=== PATIENT | male | born 1970 | race Caucasian/White ===

== ENCOUNTER 2018-04-07 18:11 | Inpatient (IN) ==
--- NOTE | 2018-04-07 18:21 | Emergency Department Note ---
Disposition Clinical Impression: NSTEMI (non-ST elevated myocardial infarction) Disposition: Admitted As Inpatient Condition: Fair Referrals: Chilo Matson MD [Primary Care Provider] - Forms: ED Satisfaction Letter Time of Disposition: 19:07 Chest Pain HPI - General Chief Complaint: ED Chest Pain Stated Complaint: ed chest pain Time Seen by Provider: 04/07/18 18:16 Source: patient Mode of arrival: EMS Limitations: no limitations Vital Signs Reviewed: Yes Nursing Notes Reviewed: Yes - History of Present Illness HPI Narrative: Chest discomfort started after the patient was laying mulch. Patient improved after sublingual nitroglycerin. No history of coronary artery disease Pt complaint: chest pain Onset (ago): hour(s) Duration: constant Onset: during exertion Pain Location: substernal Severity: moderate Severity scale (1-10): 5 Pain Radiation: none Improves with: nitroglycerin Worsens with: nothing Treatments prior to arrival chest pain: aspirin, nitroglycerin, oxygen - Related Data Allergies Allergy/AdvReac Type Severity Reaction Status Date / Time No Known Allergies Allergy Verified 04/07/18 18:34 All systems ED: reviewed and negative except as stated. Constitutional: Reports: as per HPI Eyes: Reports: as per HPI ENT ED: Reports: as per HPI Cardiovascular: Reports: chest pain Respiratory: Reports: as per HPI Gastrointestinal: Reports: as per HPI Genitourinary: Reports: as per HPI Musculoskeletal: Reports: as per HPI Integumentary: Reports: as per HPI Neurological: Reports: as per HPI Psychiatric: Reports: as per HPI Endocrine: Reports: as per HPI Hematological/Lymphatic: Reports: as per HPI Allergic/Immunologic: Reports: as per HPI Chest Pain PMH - Social History Smoking Status: Never smoker Drug use: Reports: none Physical Exam - General Limitations: no limitations General appearance: alert - Head Head exam: atraumatic - Eye Eye exam: Present: normal appearance - ENT ENT exam: normal exam - Neck Neck exam: Present: normal inspection, full ROM - Chest Chest inspection: Present: normal inspection, symmetric chest wall rise - Respiratory Respiratory exam: Present: normal lung sounds bilaterally - Cardiovascular Cardiovascular exam: Present: regular rate, normal rhythm, normal heart sounds - Rectal Exam Rectal exam: Present: deferred - Extremities Exam Extremities exam: Present: normal inspection - Neurological Exam Neurological exam: Present: alert, oriented X3, CN II-XII intact - Psychiatric Psychiatric exam: Present: normal affect, normal mood - Skin Skin exam: Present: warm, dry, intact Course Course Narrative: Patient presents with chest discomfort. This occurred after he was laying mulch. He appears in no acute distress on exam. Cardiac workup initiated - Consultations Consultation #1: call placed to cardiology data visualization developer. EKG sent to Dr. Mccullough at 19:32 Vital Signs Temperature 98.3 F 04/07/18 18:13 Pulse Rate 94 04/07/18 18:13 Respiratory Rate 13 04/07/18 18:13 Blood Pressure 171/103 04/07/18 18:13 O2 Sat by Pulse Oximetry 95 04/07/18 18:13 Temperature 98.3 F 04/07/18 18:29 Pulse Rate 92 04/07/18 18:32 Respiratory Rate 12 04/07/18 18:32 Blood Pressure 170/107 04/07/18 18:32 O2 Sat by Pulse Oximetry 96 04/07/18 18:32 Oxygen Delivery Oxygen Delivery Room Air Chest Pain - Lab Data Lab results reviewed: Yes I reviewed the patient's lab results. Result diagrams: 04/07/18 18:24 04/07/18 18:24 Lab Results 04/07/18 04/07/18 04/07/18 Range/Units 18:24 18:24 18:24 WBC 14.1 H (4.3-11.1) K/mcL RBC 5.15 (4.19-5.50) M/mcL Hgb 15.7 (12.9-16.9) g/dL Hct 45.3 (37.5-50.1) % MCV 88.0 (83.0-100.0) fL MCH 30.5 (28.0-33.3) pg MCHC 34.7 (31.6-35.5) g/dL RDW 13.2 (11.5-14.5) % Plt Count 175 (140-400) K/mcL MPV 11.4 (9.4-12.4) fL Immature Gran % 0.6 (0-4) % Seg Neutrophils % 74.0 % Lymphocytes % 17.9 % Monocytes % 6.0 % Eosinophils % 1.2 % Basophils % 0.3 % Neutrophils # 10.4 H (1.6-8.9) K/mcL Lymphocytes # 2.5 (0.6-4.6) K/mcL Monocytes # 0.8 (0.0-1.3) K/mcL Eosinophils # 0.2 (0.0-0.6) K/mcL Basophils # 0.0 (0.0-0.2) K/mcL PT 13.5 H (9.4-12.1) Seconds INR 1.2 APTT 29.0 (26.0-36.0) Seconds Sodium 137 (136-145) mEq/L Potassium 3.5 (3.5-5.1) mEq/L Chloride 103 (98-107) mEq/L Carbon Dioxide 23 (23-29) mEq/L BUN 15 (6-20) mg/dL Creatinine 1.26 (0.70-1.30) mg/dL Est GFR ( Amer) > 60 (> 60) Est GFR (Non-Af Amer) > 60 (> 60) BUN/Creatinine Ratio 12 (6-26) Glucose 138 H (70-105) mg/dL Calculated Osmolality 287 (280-300) Calcium 9.7 (8.6-10.3) mg/dL Total Bilirubin 0.5 (0.3-1.0) mg/dL Direct Bilirubin 0.1 (0.0-0.2) mg/dL Indirect Bilirubin 0.4 (0.0-1.2) mg/dL AST 29 (13-39) Units/L ALT 36 (7-52) Units/L Alkaline Phosphatase 58 (34-104) Units/L Troponin I 0.14 H* (< 0.04) ng/mL Serum Total Protein 7.3 (6.4-8.9) g/dL Albumin 4.7 (3.5-5.7) g/dL Globulin 2.6 (2.4-3.5) g/dL Albumin/Globulin Ratio 1.8 (1.1-2.2) - Radiology Data Radiology results reviewed: Yes I reviewed the patient's radiology results. - EKG Data EKG attestation: Yes I reviewed and interpreted this EKG. EKG results narrative: Normal sinus rhythm with premature ventricular complexes rate 92 NH 176 QRS 101 QT/QTC 368/417. No acute ST segment elevation. Mild ST segment depression in leads 3 and aVF. No previous study available for comparison Heart Score - Score History: Moderately Suspicious EKG: Non Specific repolarisation Disturbance Age: 45-65 Risk Factors: 1-2 risk factors Troponin: Greater than 3x normal limit HEART Score Total: 6 Critical Care Time Critical Care Time: Yes Total Critical Care Time: 30 Attestation: The high probability of a clinically significant, sudden or life threatening deterioration of the [] system(s) required my full and direct attention, intervention and personal management. The aggregate critical care time was [] minutes. This time is in addition to time spent performing reported procedures but includes the following: [] Data Review and interpretation [] Patient assessment and monitoring of vital signs [] Documentation [] Medication orders and management
[2018-04-07 18:39] LABS: Basophils % 0.3 %; Eosinophils # 0.2 K/mcL (0.0-0.6); Eosinophils % 1.2 %; Hematocrit 45.3 % (37.5-50.1); Hemoglobin 15.7 g/dL (12.9-16.9); Immature Granulocytes % 0.6 % (0-4); Lymphocytes # 2.5 K/mcL (0.6-4.6); Lymphocytes % 17.9 %; Mean Corpuscular HGB Conc 34.7 g/dL (31.6-35.5); Mean Corpuscular Hemoglobin 30.5 pg (28.0-33.3); Mean Platelet Volume 11.4 fL (9.4-12.4); Monocytes # 0.8 K/mcL (0.0-1.3); Neutrophils # 10.4 K/mcL (1.6-8.9); Platelet Count 175 K/mcL (140-400); Red Blood Count 5.15 M/mcL (4.19-5.50); Red Cell Distribution Width 13.2 % (11.5-14.5)
[2018-04-07 18:46] LABS: INR 1.2; Prothrombin Time 13.5 Seconds (9.4-12.1)
[2018-04-07 19:02] LABS: Alanine Aminotransferase 36 Units/L (7-52); Albumin 4.7 g/dL (3.5-5.7); Albumin/Globulin Ratio 1.8 (1.1-2.2); Alkaline Phosphatase 58 Units/L (34-104); Aspartate Amino Transferase 29 Units/L (13-39); BUN/Creatinine Ratio 12 (6-26); Bilirubin,Direct 0.1 mg/dL (0.0-0.2); Bilirubin,Indirect 0.4 mg/dL (0.0-1.2); Bilirubin,Total 0.5 mg/dL (0.3-1.0); Blood Urea Nitrogen 15 mg/dL (6-20); Calcium 9.7 mg/dL (8.6-10.3); Carbon Dioxide 23 mEq/L (23-29); Chloride 103 mEq/L (98-107); Globulin 2.6 g/dL (2.4-3.5); Glucose 138 mg/dL (70-105); Osmolality,Calculated 287 (280-300); Potassium 3.5 mEq/L (3.5-5.1); Sodium 137 mEq/L (136-145); Total Protein 7.3 g/dL (6.4-8.9); eGFR For African Americans > 60 (> 60); eGFR For Non-African Americans > 60 (> 60)
[2018-04-07 19:04] LABS: Troponin I 0.14 ng/mL (< 0.04)
[2018-04-07] MEDS ORDERED: *HR* Heparin 5,000 UNIT/ML VIAL IVP PRN ×2 (19:04)
[2018-04-07] MEDS ORDERED: *HR* Heparin 5,000 UNIT/ML VIAL IVP ONE (19:04)
[2018-04-07] MEDS ORDERED: GI Cocktail 40 ML EACH PO ONE (19:04)
[2018-04-07] MEDS ORDERED: Heparin 25,000 UNIT/500 ML D5W 25,000 UNIT/500 ML BAG IVC SCH (19:15)
[2018-04-07] MEDS ORDERED: Nitroglycerin 25 MG/250 ML INFUS..BTL IVC SCH (19:15)
--- NOTE | 2018-04-07 20:26 | Internal Med History&Physical ---
Date of Encounter: 04/08/18 Time of Encounter: 20:24 Internal Medicine - H&P: HPI Chief complaint: Chest pain Admitted From: Emergency Dept Plans for Post Hospital Care: Home History of present illness: Mr. Stephen is a 47 year old male with history of hypertension, hyperlipidemia, gout, depression who experienced chest pain around 4:30 PM while carrying 50 pounds mulch and was put it in the down. Chest pain was substernal and was 6 out of 10 in intensity with no radiation. He felt clammy and diaphoretic at the time. Chest pain continued so he came and got evaluated in the ED where an EKG was done showed no acute ST or T-wave changes but showed PVCs. His laboratory workup showed troponins of 0.14. Laboratory workup was also significant for WBC count of 14.1. Patient is afebrile and denies any fevers or chills. Chest x-ray was with no acute abnormalities. The patient denies any fever, chills, nausea, vomiting, headache, blurry vision, abdominal pain, diarrhea, urinary symptoms, or neurological symptoms. The patient received 4 baby aspirins and Route. His blood pressure initially was 171/103 and the patient was started on a heparin drip and a nitro drip due to his continuous chest pain and elevated blood pressure. Before that he received 3 sublingual nitros. Cardiology were consulted from the ED and recommended admission. Past Med Surg Social Fam HX - Past Medical History Medical history: hypertension Psychiatric history: other - Social History Smoking Status: Never smoker Alcohol use: occasionally Drug use: none Internal Medicine - H&P: Meds Allopurinol [Zyloprim 300 MG] 300 mg PO DAILY 04/07/18 [History] Escitalopram [Lexapro] 20 mg PO DAILY 04/07/18 [History] Pravastatin Sodium 10 mg PO HS 04/07/18 [History] Sildenafil Citrate 100 mg PO DAILY 04/07/18 [History] Valsartan [Valsartan] 160 mg PO DAILY 04/07/18 [History] 3 Allergy/AdvReac Type Severity Reaction Status Date / Time No Known Allergies Allergy Verified 04/07/18 19:43 All Systems PM: A 10-system review of systems was performed and is negative for pertinent findings except as documented above in the HPI. Review of systems: All systems reviewed are negative except was mentioned above - Constitutional Vitals: Temp Pulse Resp BP Pulse Ox 98.3 F 92 12 170/107 96 04/07/18 18:29 04/07/18 18:32 04/07/18 18:32 04/07/18 18:32 04/07/18 18:32 Exam: GEN: NAD HEENT: AT, NC, No cyanosis, oral mucosa is moist, No JVD Lymphatics: No lymphadenoapthy Eyes: Extrocular muscles intact, anicteric CVS:RRR. S1, S2, No m/r/g RESP: CTAB ABD: Soft, NT, ND, +BS EXT: No edema, No rashes, 2+ DP NEURO: Nonfocal, CN II-XII intact, No focal motor or sensory deficits Psych: Cooperative, Not anxious or depressed Internal Med - H&P Results - Labs CBC & Chem 7: 04/08/18 01:33 04/08/18 01:33 Labs: Short CBC 04/07/18 Range/Units 18:24 WBC 14.1 H (4.3-11.1) K/mcL Hgb 15.7 (12.9-16.9) g/dL Hct 45.3 (37.5-50.1) % Plt Count 175 (140-400) K/mcL Neutrophils # 10.4 H (1.6-8.9) K/mcL BMP 04/07/18 18:24 Sodium 137 Potassium 3.5 Chloride 103 Carbon Dioxide 23 BUN 15 Creatinine 1.26 Glucose 138 H Calcium 9.7 Cardiac Enzymes 04/07/18 Range/Units 18:24 Troponin I 0.14 H* (< 0.04) ng/mL Liver Function 04/07/18 Range/Units 18:24 Total Bilirubin 0.5 (0.3-1.0) mg/dL Direct Bilirubin 0.1 (0.0-0.2) mg/dL AST 29 (13-39) Units/L ALT 36 (7-52) Units/L Alkaline Phosphatase 58 (34-104) Units/L Albumin 4.7 (3.5-5.7) g/dL - Impressions ITS Impressions Chest X-Ray 04/07/18 18:16 IMPRESSION: Normal appearing chest. No significant acute abnormality appreciated. Slight pulmonary vascular congestion may be present. D/ / Navjot Holland MD / Navjot Holland MD Interpreting Provider: Navjot Holland MD - Assessment and plan (1) NSTEMI (non-ST elevated myocardial infarction) Current Visit: Yes Status: Acute Assessment and plan: Admit to hospitalist. We will keep the patient on a heparin drip. Trend cardiac enzymes. Check echocardiogram. Check lipid panel, hemoglobin A1c. Consult cardiology. Keep on nitro drip. Elevated cups could be secondary to a true cardiac event versus uncontrolled hypertension. Patient received already 4 low-dose aspirin. We will add a beta poli. start daily baby ASA. Increase simvastatin to 20 mg from 5 mg. Nothing by mouth after midnight (2) Hypertensive emergency Current Visit: Yes Status: Acute Assessment and plan: Continue causes chest pain and elevated troponins. Will keep on a heparin drip. Resume home anti-hypertensives (3) PVC (premature ventricular contraction) Current Visit: Yes Status: Acute Assessment and plan: Patient has PVCs. Potassium is 3.5 and I have ordered him 40 mEq of potassium. Check magnesium. (4) Depression Current Visit: Yes Status: Acute Assessment and plan: Resume home antidepressants Qualifiers: Depression Type: major depressive disorder Major depression recurrence: unspecified whether recurrent Active/Remission status: currently active Major depression episode severity: unspecified Qualified Code(s): F32.9 - Major depressive disorder, single episode, unspecified (5) Gout Current Visit: Yes Status: Acute Assessment and plan: Resume home Medications. 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 Qualifiers: Hyperlipidemia type: unspecified Qualified Code(s): E78.5 - Hyperlipidemia , unspecified (7) DVT prophylaxis Current Visit: Yes Status: Acute Assessment and plan: On a heparin drip. - Time Spent With Patient Total time spent is greater than 50% in coordination of care (as documented) at patient's floor/unit and/or counseling patient:
[2018-04-07 20:43] LABS: Magnesium 1.6 mg/dL (1.6-2.6)
[2018-04-07] MEDS ORDERED: Magnesium Oxide 400 MG TABLET PO ONE (21:10)
[2018-04-07] MEDS ORDERED: Naloxone 0.4 MG/ML INJ IVP PRN (21:18)
[2018-04-07] MEDS ORDERED: Acetaminophen 325 MG TABLET PO PRN (21:18)
[2018-04-07] MEDS ORDERED: *HR* Morphine 2 MG/ML SYRINGE IVP ONE (21:54)
[2018-04-07] MEDS ORDERED: *HR* Morphine 2 MG/ML SYRINGE ONE (21:58)
[2018-04-07] MEDS: Metoprolol XL (24 HR) Succ 25 MG TAB.ER.24H PO SCH (23:29)
[2018-04-07] MEDS ORDERED: *HR* FentaNYL (PF) 100 MCG/2 ML VIAL IVP ONE (23:36)
[2018-04-08 01:47] LABS: Basophils % 0.2 %; Eosinophils # 0.1 K/mcL (0.0-0.6); Eosinophils % 0.4 %; Hematocrit 46.6 % (37.5-50.1); Immature Granulocytes % 0.4 % (0-4); Lymphocytes # 2.8 K/mcL (0.6-4.6); Lymphocytes % 19.6 %; Mean Corpuscular HGB Conc 34.3 g/dL (31.6-35.5); Mean Corpuscular Hemoglobin 30.1 pg (28.0-33.3); Mean Corpuscular Volume 87.8 fL (83.0-100.0); Mean Platelet Volume 11.4 fL (9.4-12.4); Monocytes # 0.8 K/mcL (0.0-1.3); Monocytes % 5.8 %; Neutrophils # 10.3 K/mcL (1.6-8.9); Platelet Count 190 K/mcL (140-400); Red Blood Count 5.31 M/mcL (4.19-5.50); Red Cell Distribution Width 13.2 % (11.5-14.5); Segmented Neutrophils % 73.6 %
[2018-04-08 02:08] LABS: BUN/Creatinine Ratio 14 (6-26); Blood Urea Nitrogen 14 mg/dL (6-20); Calcium 9.7 mg/dL (8.6-10.3); Carbon Dioxide 23 mEq/L (23-29); Chloride 103 mEq/L (98-107); Chol/HDL Ratio 5.5 (0-4.9); Cholesterol 208 mg/dL (< 200); Glucose 146 mg/dL (70-105); HDL Cholesterol 38 mg/dL (40-59); LDL Cholesterol,Calculated 120 mg/dL (0-99); Magnesium 1.8 mg/dL (1.6-2.6); Osmolality,Calculated 283 (280-300); Potassium 4.1 mEq/L (3.5-5.1); Sodium 135 mEq/L (136-145); Triglycerides 250 mg/dL (< 150); eGFR For African Americans > 60 (> 60); eGFR For Non-African Americans > 60 (> 60)
[2018-04-08 02:21] LABS: Thyroid Stimulating Hormone 2.982 mcIU/mL (0.340-5.600)
--- NOTE | 2018-04-08 08:03 | Pre-Sedation Evaluation ---
Pre-sedation evaluation - Pre-sedation checklist Date of procedure: 04/08/18 Procedure: [facility] Recent Vitals: Last Vital Signs Temp 97.7 F 04/08/18 06:26 Pulse 71 04/08/18 06:26 Resp 15 04/08/18 06:26 BP 131/79 04/08/18 06:26 Pulse Ox 96 04/08/18 06:26 H&P (including ROS) documented in medical record: Yes Previous reaction to sedatives/anesthetics: No Dietary Status: NPO after Midnight Airway Assessment: Patient can open mouth completely, TMJ function normal ASA Classification *see protocol: CLASS II-Mild systemic disease Plan of Care: Pt appropriate candidate for procedure/moderate/conscious sedation , Risks/benefits of procedure/sedation discussed w/ patient/family
[2018-04-08 08:10] LABS: Estimated Average Glucose 120 mg/dl; Hemoglobin A1C 5.8 %
--- NOTE | 2018-04-08 08:30 | Cardiology Consult Note ---
<Martir Suarez - Last Filed: 04/08/18 08:25> Date of Encounter: 04/08/18 Time of Encounter: 08:15 Assessment and Plan (1) NSTEMI (non-ST elevated myocardial infarction) Current Visit: Yes Status: Acute Troponin elevation up to 34.4. EKG shows SR with bigeminal PVC, possible old septal TX. He continues to have chest pain despite antianginals and morphine. Recommend LHC. R/B/A of LHC discussed with patient and and he agrees. Continue heparin gtt, and IV NTG gtt. Asa, statin, and bb. (2) HTN (hypertension) Current Visit: Yes Status: Acute Uncontrolled HTN. Metoprolol started. Continue diovan. Low sodium diet. Qualifiers: Hypertension type: essential hypertension Qualified Code(s): I10 - Essential (primary) hypertension (3) PVC (premature ventricular contraction) Current Visit: Yes Status: Acute Seen to have frequent PVC. May be due to ischemia. LHC pending. BB started. Discussion w patient/family: The assessment and plan as outlined above was discussed with the patient and/or family members who expressed understanding and agreement. All questions were answered. Thank you for involving us in the care of your patient. Please call with any questions. History of Present Illness Consult date: 04/08/18 Requesting physician: Jesus Valenzuela Consult reason: NSTEMI Chief complaint: Chest pain History of present illness: Mr. Stephen is a 47 year old male with past medical history of HTN and HLD who presented with the c/o chest pain starting after doing yard work. C/o mid- sternal non-radiating pain in the center of his chest and overall feeling of not feeling well. Denies SOB or palpitations. His symptoms improved with morphine but states his pain returned and is currently 8/10. He is currently on NTG gtt and IV heparin. He denies prior history of CAD or cardiac work-up. Past Med Surg Social Fam HX - Past Medical History Medical history: hyperlipidemia, hypertension Additional medical history: gout Psychiatric history: other - Social History Smoking Status: Never smoker Alcohol use: occasionally Drug use: none Medications and Allergies Allopurinol [Zyloprim 300 MG] 300 mg PO DAILY 04/07/18 [History] Escitalopram [Lexapro] 20 mg PO DAILY 04/07/18 [History] Pravastatin Sodium 10 mg PO HS 04/07/18 [History] Sildenafil Citrate 100 mg PO DAILY 04/07/18 [History] Valsartan [Valsartan] 160 mg PO DAILY 04/07/18 [History] Atorvastatin [Lipitor] 80 mg PO HS #30 tablet 04/08/18 [Rx] Metoprolol XL (24 HR) Succ [Toprol XL] 12.5 mg PO DAILY #15 tab.er.24h 04/08/18 [Rx] Nitroglycerin [Nitrostat] 0.4 mg SL AD PRN #25 tab.subl 04/08/18 [Rx] Ticagrelor [Brilinta] 90 mg PO BID #60 tablet 04/08/18 [Rx] 3 Allergy/AdvReac Type Severity Reaction Status Date / Time No Known Allergies Allergy Verified 04/07/18 19:43 All Systems Review: The remainder of the systems were reviewed and are negative Physical Examination Vital Signs, Last 4 Hours Temp Pulse Resp BP Pulse Ox 04/08/18 06:26 97.7 F 71 15 131/79 96 04/08/18 06:13 131/79 04/08/18 05:07 97.8 F 61 18 96 04/08/18 04:54 70 127/87 General: Conversant, No Apparent Distress HEENT: Atraumatic, Normocephaly, Mucus Membranes Moist Neck: No JVD, Normal carotid pulses Cardiac: Reg Rate and Rhythm, Normal S1 and S2, No Murmur, Other (SR with PVC) Lungs: Normal Breath Sounds, No Wheeze, Rales, Rhonchi Neuro: Alert and responsive, No focal deficits noted Abdomen: Soft, Non-Tender Skin: No rashes noted on visualized skin Musculoskeletal: No Chest Wall Tenderness Extremities: No Clubbing, No Cyanosis, No Edema, Normal Pulses Results 04/08/18 01:33 04/08/18 01:33 Lab Results 04/08/18 04/08/18 04/08/18 01:33 01:33 01:33 WBC 14.1 H Hgb 16.0 Hct 46.6 Plt Count 190 APTT Sodium 135 L Potassium 4.1 Chloride 103 Carbon Dioxide 23 BUN 14 Creatinine 1.01 Glucose 146 H Calcium 9.7 Magnesium 1.8 Troponin I 8.31 H* TSH 2.982 04/08/18 04/08/18 01:33 07:42 WBC Hgb Hct Plt Count APTT 43.4 H Sodium Potassium Chloride Carbon Dioxide BUN Creatinine Glucose Calcium Magnesium Troponin I 34.49 H* TSH - EKG Interpretation EKG results cardiology: personally reviewed Consult Discharge Plan - Plan Referrals: Chilo Matson MD [Primary Care Provider] - Prescriptions: Atorvastatin [Lipitor] 80 mg PO HS #30 tablet Metoprolol XL (24 HR) Succ [Toprol XL] 12.5 mg PO DAILY #15 tab.er.24h Nitroglycerin [Nitrostat] 0.4 mg SL AD PRN #25 tab.subl PRN Reason: Chest Pain Ticagrelor [Brilinta] 90 mg PO BID #60 tablet <Yosi Smith - Last Filed: 04/08/18 17:09> Date of Encounter: 04/08/18 - Attending Attestation I have personally performed a face to face evaluation on this patient. I have reviewed and agree with the care plan. History and Exam by me shows: CC: Chest pain Pt complains of mid sternal chest pain, 10/10, at most severe, started during yard work, non radiating, associated with mild shortness of breath, lasted approx thirty minutes, resolved, but continued to feel tired. He reports chest pain resolved, but has reoccurred. He currently has 8/10 chest pain on nitroglycerin and heparin. ROS: reviewed PMH: reviewed PE: pt seen and examined, agree with findings as documented. IMP: 1. NSTEMI, on going chest pain, recommend emergent left heart cath/possible PCI , risks and benefits discussed, agrees to proceed. Assessment and Plan Discussion w patient/family: The assessment and plan as outlined above was discussed with the patient and/or family members who expressed understanding and agreement. All questions were answered. Thank you for involving us in the care of your patient. Please call with any questions. History of Present Illness History of present illness: Mr. Stephen is a 47 year old male All Systems Review: The remainder of the systems were reviewed and are negative Physical Examination Vital Signs, Last 4 Hours Temp Pulse Resp BP Pulse Ox 04/08/18 15:57 97.8 F 78 15 111/84 97 04/08/18 15:54 78 20 127/109 94 04/08/18 14:29 67 20 142/95 96 04/08/18 14:19 73 20 157/109 96 04/08/18 14:15 69 20 157/109 95 04/08/18 13:50 76 20 159/118 99 04/08/18 13:48 68 20 159/118 96 Results 04/08/18 01:33 04/08/18 01:33 Lab Results 04/08/18 04/08/18 04/08/18 01:33 01:33 01:33 WBC 14.1 H Hgb 16.0 Hct 46.6 Plt Count 190 APTT Sodium 135 L Potassium 4.1 Chloride 103 Carbon Dioxide 23 BUN 14 Creatinine 1.01 Glucose 146 H Calcium 9.7 Magnesium 1.8 Troponin I 8.31 H* TSH 2.982 04/08/18 04/08/18 04/08/18 01:33 07:42 12:13 WBC Hgb Hct Plt Count APTT 43.4 H 30.8 Sodium Potassium Chloride Carbon Dioxide BUN Creatinine Glucose Calcium Magnesium Troponin I 34.49 H* TSH
[2018-04-08] MEDS: Valsartan 160 MG TABLET PO SCH (08:44)
[2018-04-08] MEDS: Aspirin Enteric Coated 81 MG Tablet PO SCH (08:44)
--- NOTE | 2018-04-08 08:51 | Internal Med Progress Note ---
<Abimael Del Toro - Last Filed: 04/08/18 08:48> Date of Encounter: 04/08/18 Time of Encounter: 08:48 - Assessment and plan (1) NSTEMI (non-ST elevated myocardial infarction) Current Visit: Yes Status: Acute Assessment and plan: Patient continues to have active chest pain. Troponin has continued to rise and is 38 this morning. Currently on heparin drip, nitro drip, aspirin, statin, beta poli, ARB. Cardiology is been consulted and patient will undergo left heart catheterization this morning. (2) PVC (premature ventricular contraction) Current Visit: Yes Status: Acute Assessment and plan: Patient has PVCs, likely secondary to ischemia. Potassium 4.1 this morning, and mag is 1.8. Continue telemetry and continue to monitor post left heart catheterization. (3) Hypertensive emergency Current Visit: Yes Status: Acute Assessment and plan: Blood pressure control at this time the patient continues to have chest pain. Currently on nitro drip. Continue nitro drip for now will likely discontinue after left heart catheterization. Restart home antihypertensives. (4) HLD (hyperlipidemia) Current Visit: Yes Status: Acute Assessment and plan: Switched to atorvastatin 80 mg Qualifiers: Hyperlipidemia type: unspecified Qualified Code(s): E78.5 - Hyperlipidemia , unspecified (5) Gout Current Visit: Yes Status: Acute Assessment and plan: No evidence acute attack. 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 - Time Spent With Patient Total time spent is greater than 50% in coordination of care (as documented) at patient's floor/unit and/or counseling patient: - Subjective Interval history: Patient seen and examined at bedside. Patient states that he still has chest pain this morning. He describes it as a feeling of somebody sitting on his chest. He denies radiation, shortness of breath, diaphoresis. He does feel the pain is slightly improved from admission. - Constitutional Vitals: Temp Pulse Resp BP Pulse Ox 97.7 F 71 15 131/79 96 04/08/18 06:26 04/08/18 06:26 04/08/18 06:26 04/08/18 06:26 04/08/18 06:26 General appearance: Present: A&O X 3, no acute distress - Respiratory Respiratory exam: Present: CTAB. Absent: rales, rhonchi, wheezes - Cardiovascular Cardiovascular exam: Present: irregular rhythm. Absent: gallop, rubs, systolic murmur, tachycardia - Extremities Exam Extremities exam: Present: warm. Absent: pedal edema, tenderness - Neurological Exam Neurological exam: Present: alert, oriented X3, no focal deficits Internal Medicine: Result - Labs CBC & Chem 7: 04/08/18 01:33 04/08/18 01:33 Labs: Short CBC 04/08/18 Range/Units 01:33 WBC 14.1 H (4.3-11.1) K/mcL Hgb 16.0 (12.9-16.9) g/dL Hct 46.6 (37.5-50.1) % Plt Count 190 (140-400) K/mcL Neutrophils # 10.3 H (1.6-8.9) K/mcL BMP 04/08/18 01:33 Sodium 135 L Potassium 4.1 Chloride 103 Carbon Dioxide 23 BUN 14 Creatinine 1.01 Glucose 146 H Calcium 9.7 Cardiac Enzymes 04/08/18 04/08/18 Range/Units 01:33 07:42 Troponin I 8.31 H* 34.49 H* (< 0.04) ng/mL - ABG Interpretation ABG results: PT/INR, D-dimer PT 13.5 Seconds (9.4-12.1) H 04/07/18 18:24 Consult Discharge Plan - Plan Referrals: Chilo Matson MD [Primary Care Provider] - Prescriptions: Atorvastatin [Lipitor] 80 mg PO HS #30 tablet Metoprolol XL (24 HR) Succ [Toprol XL] 12.5 mg PO DAILY #15 tab.er.24h Nitroglycerin [Nitrostat] 0.4 mg SL AD PRN #25 tab.subl PRN Reason: Chest Pain Ticagrelor [Brilinta] 90 mg PO BID #60 tablet <Brandyn Huff - Last Filed: 04/08/18 15:58> Date of Encounter: 04/08/18 - Time Spent With Patient Total time spent is greater than 50% in coordination of care (as documented) at patient's floor/unit and/or counseling patient: - Constitutional Vitals: Temp Pulse Resp BP Pulse Ox 97.8 F 67 20 142/95 96 04/08/18 11:46 04/08/18 14:29 04/08/18 14:29 04/08/18 14:29 04/08/18 14:29 Internal Medicine: Result - Labs CBC & Chem 7: 04/08/18 01:33 04/08/18 01:33 Labs: Short CBC 04/08/18 Range/Units 01:33 WBC 14.1 H (4.3-11.1) K/mcL Hgb 16.0 (12.9-16.9) g/dL Hct 46.6 (37.5-50.1) % Plt Count 190 (140-400) K/mcL Neutrophils # 10.3 H (1.6-8.9) K/mcL BMP 04/08/18 01:33 Sodium 135 L Potassium 4.1 Chloride 103 Carbon Dioxide 23 BUN 14 Creatinine 1.01 Glucose 146 H Calcium 9.7 Cardiac Enzymes 04/08/18 04/08/18 Range/Units 01:33 07:42 Troponin I 8.31 H* 34.49 H* (< 0.04) ng/mL - ABG Interpretation ABG results: PT/INR, D-dimer PT 13.5 Seconds (9.4-12.1) H 04/07/18 18:24 - Attending Attestation I saw and examined this patient independently, and my medical decision making was reviewed with the Resident on 2017. I agree with the documented findings, assessment and treatment plan as described in the progress note.
[2018-04-08] MEDS ORDERED: Verapamil 5 MG/2 ML VIAL ONE (09:03)
[2018-04-08] MEDS ORDERED: 0.9 % Sodium Chloride 1,000 ML ONE ×2 (09:03→09:35)
[2018-04-08] MEDS ORDERED: Heparin 1,000 UNITS/500 mL 500 ML ONE (09:04)
[2018-04-08] MEDS ORDERED: *HR* Heparin 10,000 UNIT/10 ML VIAL ONE (09:04)
[2018-04-08] MEDS ORDERED: Nitroglycerin 1,000 MCG/10 ML VIAL IV ONE (09:04)
[2018-04-08] MEDS ORDERED: ISOVUE-370 200 ML INFUS..BTL IV ONE (09:04)
[2018-04-08] MEDS ORDERED: *HR* FentaNYL (PF) 100 MCG/2 ML VIAL ONE (09:32)
[2018-04-08] MEDS ORDERED: *HR* Midazolam HCl 5 MG/5 ML VIAL IVP ONE (09:32)
[2018-04-08] MEDS ORDERED: Tirofiban 12.5 MG/250ML 12.5 MG/250 ML BAG ONE (10:06)
[2018-04-08] MEDS ORDERED: *HR* Ticagrelor 90 MG TABLET ONE (10:21)
--- NOTE | 2018-04-08 10:44 | Invasive Diagnostic Lab Proc ---
Name: Dano Stephen Date of Study: 04/08/2018 Date: 1970 Ht: 70.0in Medical Record#: [id number] Age: 47 Wt: 253.53lb Gender: Male BSA: 2.31 Order #: [id number] BMI: 36.38 Physicians Procedure Physician: Ross Huntley MD, [facility] Referring MD: Referring MD: Staff Name Position Time In Nghia Wood RT (R) Scrub 09:28 AM Piero Pastrana RN Loan Interviewer Mortgage 09:29 AM Danielle Salmon RT Scrub 09:30 AM Nghia Wood RT (R) Monitor 09:30 AM Indications Indication Non-Stemi Procedures Performed Procedure L HRT ARTERY/VENTRICLE ANGIO PRQ CARD REVASC IA 1 VSL Pre-Procedure Checklist Informed consent is complete signed and on chart. H&P is on chart. ID band is on and ID verified with patient. Patient NPO for procedure The procedure was described for the patient and questions were answered. Blood Pressure: 154/97 ECG is on chart. Rhythm: NSR w PVC's Plan of Care Patient will tolerate the procedure without complications. Adequate level of comfort will be maintained. Hemodynamics will remain stable Patient will recover from procedure without complications. Respiratory function will be maintained. Cardiac rhythm will remain stable. Patient temperature will be maintained. Patient and/or family have verbalized understanding of the procedure. Patient Education Chief Complaint/Reason for Test: Cardiac Cath Developmental Category: Adult (18-64 years) Developmentally Appropriate for Age: Yes Learning Barriers: None Education Needs: Procedure Education Method: Verbal Information Taught: Cardiac Cath Educational Evaluation: Able to repeat information Intravenous Access Time IV Size Location DC'd Fluid/Drip Rate Units RN 09:28 AM 18g 1 1/4" Patent On Arrival Lt Antecubital 0.9NaCl 25 ml/hr Piero Pastrana RN Allergies No Known Allergies Vital Signs Time BP (mmHg) HR (bpm) O2 Sat. RR (bpm) LOC 09:30 AM 154 / 97 78 98 % 16 5 = Fully awake and oriented or at pre-proc level 09:30 AM / % 4 = Oriented but drowsy 09:45 AM / % 4 = Oriented but drowsy 10:00 AM / % 4 = Oriented but drowsy 09:39 AM 154 / 97 72 98 % 09:44 AM 153 / 102 80 96 % 09:49 AM 141 / 86 87 90 % 09:54 AM 145 / 93 73 97 % 09:59 AM 131 / 77 72 96 % 10:04 AM 113 / 75 65 96 % 10:09 AM 129 / 89 73 95 % 10:14 AM 136 / 92 73 96 % 10:19 AM 130 / 78 87 99 % 10:15 AM / % 5 = Fully awake and oriented or at pre-proc level Procedural Medications Time Medication Dose Units Method Given By 09:28 AM Nitroglycerin 10 mcg/hr Intravenous 09:38 AM Versed 2 mg Intravenous JermainthornPiero enrique RN 09:38 AM Fentanyl 50 mcg Intravenous AishaornPiero enrique RN 09:38 AM Oxygen 2 L/min nasal cannula Piero Pastrana RN 09:42 AM Lidocaine 2% 0.5 ml Subcutaneous Ross Huntley MD, [facility] 09:42 AM Versed 1 mg Intravenous Piero Pastrana RN 09:42 AM Fentanyl 25 mcg Intravenous Piero Pastrana RN 09:44 AM Heparin 2000 units Nitroglycerin 200 mcg Verapamil 2.5 mg Intraarterial Ross Huntley MD, [facility] 09:47 AM Heparin 1000 units Intravenous Piero Pastrana RN 10:05 AM Nitroglycerin 200 mcg Intracoronary Ross Huntley MD 10:09 AM Aggrastat Bolus: 58 ml Intravenous Piero Pastrana RN 10:09 AM Aggrastat 12.5mg/250ml 21 ml/hr Intravenous Piero Pastrana RN 10:16 AM Nitroglycerin 200 mcg Intracoronary Ross Huntley MD 10:21 AM Brilinta 180 mg Orally Piero Pastrana RN ASA Classification: CLASS II- Mild systemic disease (i.e. well-controlled diabetes, hypertension, asthma, cigarette smoking) Shant Score Preprocedure Postprocedure Activity 2- Moves 4 extremities sustained head lift Activity 2- Moves 4 extremities sustained head lift Circulation 2- SBP +/= 20 points of pre-anesthetic level Circulation 2- SBP +/= 20 points of pre-anesthetic level Consciousness 2- Awake and alert oriented x 3 Consciousness 2- Awake and alert oriented x 3 O2 Saturation 2- Able to maintain O2 satruation of 92% on room air O2 Saturation 2- Able to maintain O2 satruation of 92% on room air Respiratory 2- Able to deep breathe and cough well Respiratory 2- Able to deep breathe and cough well Total Score 10 Total Score 10 Contrast Agent: Isovue Diagnostic Contrast: 190 ml Total Contrast: 190 ml Fluoro Dose: 1476 mGy Activated Clotting Time Time Seconds to Clot 09:47 AM 149 Procedure Log Time Note Enter By 09:24 AM CathStat 09:28 AM Pt arrived to quality lab technician 2 at 09:28 kkner 09:28 AM Patient arrived at 09:28 with Nitroglycerin Intravenous drip @ 10 mcg/hr kkner 09:28 AM Patient charges- Angio tray pack, Navilyst 3mm J, Pulse Oximetry and ACIST tubing and transducer kkner 09:28 AM IV Supplies used: J loop Angio Cath. kk 09:28 AM Case Delayed No :28 AM Hair removed from procedure site in holding area using clippers. Bilateral groin prepped with Chloraprep by , then patient was draped. Skin intact. kk 09:29 AM Physician arrived :29 kk 09:29 AM Hans and cynthia completed :29 AM Sign in performed according to hospital policy. 09:29 AM Procedure start : 09:30 AM Piero Pastrana RN Position: Loan Interviewer Mortgage Time in: :29 09:30 AM Danielle Salmon RT Position: Scrub Time in: :30 09:30 AM Nghia Wood RT (R) Position: Monitor Time in: :30 09:30 AM Time: 09:30 Patient comfortable and pain free: Yes :30 AM Time: 09:30LOC: 5 = Fully awake and oriented or at pre-proc level 09:30 AM ASA Class CLASS II- Mild systemic disease (i.e. well-controlled diabetes, hypertension, asthma, cigarette smoking) 09:38 AM Time: :38 Versed 2 mg Intravenous Given by Piero Pastrana RN :38 AM Time: 09:38 Fentanyl 50 mcg Intravenous Given by Piero Pastrana RN moises :38 AM Time: 09:38 Oxygen on at 2 L/min per nasal cannula by Piero Pastrana RN moises :38 AM Clinical Presentation: Non-STEMI :38 AM Vitals capture started with the following parameters, Patient=Adult, Interval=5 min, Initial Pgiwheir=775 mmHg, Deflation Rate=5 mmHg, Cuff placed on Right Arm 09:38 AM Recorded ECG: HR=73 Condition=Condition 1 09:39 AM HR=72 bpm, FJQN=930/97 mmhg, SpO2=98.0 % 09:42 AM Time out performed according to hospital policy 09:42 AM Time: 09:42 0.5 ml Lidocaine 2% to right radial Subcutaneous Given by Ross Huntley MD, FAC 09:42 AM Time: 09:42 Versed 1 mg Intravenous Given by Piero Pastrana RN 09:43 AM Time: 09:42 Fentanyl 25 mcg Intravenous Given by Piero Pastrana RN :43 AM Pressure channel 1 zero failed. 09:43 AM Pressure channel 1 zero failed. 09:43 AM Pressure channel 1 zeroed. 09:43 AM Access obtained by percutaneous puncture. 6Fr 10cm Terumo Glidesheath sheath placed in right Radial artery. [id number] :43 AM 0.035 260cm Navilyst 3mmJ wire [id number] kkall 09:44 AM HR=80 bpm, AUUE=783/102 mmhg, SpO2=96.0 % 09:44 AM Time: 09:44 Patient given 2,000 units Heparin, 200 mcg Nitroglycerin, and 2.5 mg Verapamil Intraarterial by Ross Huntley MD, FAC. This is given to reduce risk of vessel spasm and thrombosis. kk 09:45 AM 5Fr TIG catheter inserted over the wire DNC :45 AM Time: 09:30LOC: 4 = Oriented but drowsy kk:45 AM Time: 09:30 Patient comfortable and pain free: Yes kkallner 09:45 AM act drawn kkallner 09:47 AM ACT 149 kkallner 09:47 AM RCA angiography performed in multiple views. all 09:47 AM Recorded Pressure: Ao, HR=77, Condition=Condition 1 (Aorta) Ao 115/85/101 09:47 AM Time: 09:47 Heparin 1000 units Intravenous Given by Piero Pastrana RN kkall 09:48 AM Coronary Dominance: right kkallner 09:48 AM Catheter removed kkallner 09:49 AM HR=87 bpm, LAFN=059/86 mmhg, SpO2=90.0 % 09:50 AM 6Fr RBL 3.5 Convey guide catheter was used to cannulate the PCI vessel successfully. reused? No kkallner 09:51 AM Catheter selectively placed in left ventricle kkallner 09:51 AM Recorded Pressure: LV, HR=80, Condition=Condition 1 (Left Ventricle) LV 126/18/22 09:51 AM Bolus angiogram of left Ventricle complete: 10 ml/sec for a total of 20 mls kkallner 09:51 AM Recorded Pressure: LV, Ao, HR=72, Condition=Condition 1 (Left Ventricle) LV 302/87/-72, (Aorta) Ao 125/86/106 09:51 AM LCA angiography performed in multiple views. kkall 09:52 AM Recorded Pressure: Ao, HR=76, Condition=Condition 1 (Aorta) Ao 130/87/109 09:53 AM Inflation device was opened. kkall 09:54 AM Lesion found in 1st Diagonal. Pre Stenosis: 100 Pre HERMELINDA Flow: kkall 09:54 AM Mid/Distal Left Anterior Descending Coronary Artery and diagonal branches with 100% stenosis. If graft is supplying this area, 0 % stenosis kkallner 09:54 AM .014 [place] 190cm guide wire across target lesion- successful. reused? No kkner 09:54 AM HR=73 bpm, KIDG=710/93 mmhg, SpO2=97.0 % 09:56 AM .014 Prowater 180cm guide wire across target lesion- successful. reused? No kk 09:58 AM 2.25 mm x 15 mm Emerge Monorail balloon across target lesion- successful. reused? No kkner 09:59 AM HR=72 bpm, YNMA=977/77 mmhg, SpO2=96.0 % 10:00 AM Time: 09:45 Patient comfortable and pain free: Yes kkallner 10:00 AM Time: 09:45LOC: 4 = Oriented but drowsy kkallner 10:00 AM Balloon inflated @ 8 selma for 8 seconds kkallner 10:01 AM Balloon inflated @ 8 selma for 12 seconds kkallner 10:02 AM Balloon catheter removed intact. kkallner 10:04 AM HR=65 bpm, YXVC=134/75 mmhg, SpO2=96.0 % 10:04 AM Recorded Pressure: Ao, HR=76, Condition=Condition 1 (Aorta) Ao 114/81/99 10:05 AM Time: 10:05 Nitroglycerin 200 mcg Intracoronary Given by Ross Huntley MD kkner 10:06 AM 6Fr Guidezilla advanced kkner 10:09 AM HR=73 bpm, ZSDA=708/89 mmhg, SpO2=95.0 % 10:09 AM Time: 10:09 Aggrastat Bolus: 58 ml Intravenous Given by Piero Pastrana RN Ybarra pump kkner 10:09 AM Time: 10:09 Aggrastat 12.5mg/250ml 21 ml/hr Intravenous Given by Piero Pastrana RN Ybarra pump kkner 10:11 AM Recorded Pressure: Ao, HR=77, Condition=Condition 1 (Aorta) Ao 121/96/108 10:12 AM 2.75mm x 20mm Synergy drug-eluting stent across target lesion- successful Lot #[id number] kk 10:14 AM HR=73 bpm, KQWN=008/92 mmhg, SpO2=96.0 % 10:15 AM Stent deployed @ 18 selma for 16 seconds kk 10:15 AM Time: 10:00LOC: 4 = Oriented but drowsy kk 10:15 AM Time: 10:00 Patient comfortable and pain free: Yes kk 10:16 AM Time: 10:16 Nitroglycerin 200 mcg Intracoronary Given by Ross Huntley MD kk 10:18 AM Stent delivery system removed intact. kk 10:18 AM Guide wire removed intact. kk 10:18 AM Guide wire removed intact. kk 10:18 AM Guidezilla removed intact. kk 10:19 AM Guide catheter removed intact. kk 10:19 AM HR=87 bpm, PGBW=632/78 mmhg, SpO2=99.0 % 10:20 AM Arterial sheath pulled, Vasc Band closure device used and was Successful S/N. kkner 10:20 AM 12 ml air in Vasc Band. kkallner 10:20 AM Procedure completed at 10:20 kkallner 10:21 AM Sign out completed: Radiation Dose 1476.22 mGy Fluoro Time: 10.7 Isovue 370 - 200ml contrast 190 ml given by Ross Huntley MD, FACC. Complications: NoneCardiac Rehab Consult needed: YesConfirmed administered medications: No kkallner 10:21 AM Time: 10:21 Brilinta 180 mg Orally Given by Piero Pastrana RN kkallner 10:21 AM Estimated Blood Loss: less than 20cc kkallner 10:22 AM Post ECG NSR w pvc's kkallner 10:22 AM Post Blood Pressure 130/78 kkallner 10:22 AM 10:22 Post Pulses Rt Radial 1+ kkallner 10:22 AM Information taught Cardiac Cath, PCI, and Vasc Band kkallner 10:22 AM Education needs Procedure, Plan of Care, and Disease Process kkallner 10:22 AM Learning barriers :Sedated kkallner 10:23 AM Education Methods Verbal kkallner 10:23 AM Education evaluation Needs further instruction kkallner 10:23 AM Site status No bleeding/hematoma - Rt Wrist as reported by Danielle Salmon RT at 10:23 kkallner 10:23 AM Delay to floor No kkallner 10:23 AM Family placed in consult room. kkallner 10:23 AM Complications: None kkallner 10:23 AM Fluoro Time: 10.7 kkallner 10:23 AM Isovue 370 - 200ml contrast 190 ml given by . kkallner 10:24 AM Radiation Dose 1476.22 mGy kkallner 10:24 AM Nitro Intravenous drip dc'd geneva dejesus rn kkallner 10:26 AM Lesion found in Mid RCA. Pre Stenosis: 30 Pre HERMELINDA Flow: kkallner 10:26 AM Right Coronary, Right Posterior Descending Arteries with Right Posterolateral and Acute Marginal branches with 30 % stenosis. If graft is supplying this area, 0 % stenosis kkallner 10:26 AM Lesion found in LMCA. Pre Stenosis: 20 Pre HERMELINDA Flow: kkallner 10:26 AM Left Main Coronary Artery with 20% stenosis kkallner 10:26 AM Lesion found in Proximal LAD. Pre Stenosis: 30 Pre HERMELINDA Flow: kkallner 10:26 AM Proximal Left Anterior Descending Coronary Artery with 30% stenosis. If graft is supplying this territory, 0 % stenosis. kkallner 10:26 AM Lesion found in Mid Circumflex. Pre Stenosis: 30 Pre HERMELINDA Flow: kkallner 10:26 AM Circumflex, Obtuse Marginal, Left Posterior Descending, and Left Posterolateral Coronary Arteries with 30 % stenosis. If graft is supplying this area, 0 % stenosis kkallner 10:27 AM Lesion found in Right PDA. Pre Stenosis: 30 Pre HERMELINDA Flow: kkallner 10:27 AM Right Coronary, Right Posterior Descending Arteries with Right Posterolateral and Acute Marginal branches with 30 % stenosis. If graft is supplying this area, 0 % stenosis kkallner 10:30 AM Patient out of room: 10:30 kkallner 10:30 AM Time: 10:15 Patient comfortable and pain free: Yes kkallner 10:30 AM Time: 10:15LOC: 5 = Fully awake and oriented or at pre-proc level kkallner 10:31 AM Report given to jessica SOTO [facility] Complication None None Hemodynamics Pressures Site Systolic/A Wave Diastolic/V Wave Mean AO 115 85 101 LV 126 18 22 LV 302 87 -72 AO 125 86 106 AO 130 87 109 AO 114 81 99 AO 121 96 108 Post Procedure Information Blood Pressure: 130/78 mmHg Rhythm: NSR w pvc's Post procedural instructions were given Closure Device Time Device Success/Fail 04/08/2018 10:20:00 AM Mechanical Compression Successful Site Checks Time Location Status Staff Sheath In? Note 10:23 AM Rt Wrist No bleeding/hematoma Daneille Salmon RT Pulses Time Site Pre-Procedure Post-Procedure Note 04/08/2018 9:40:00 AM Bilateral DP & PT 2+ 04/08/2018 9:40:00 AM Rt Radial 2+ 10:22:00 AM Rt Radial 1+ Updated by Danielle Salmon, RT (R) on 04/08/2018 10:35:49 AM electronically signed on 04/08/2018 10:36:14 AM with status of Final
[2018-04-08] MEDS ORDERED: Ondansetron 4 MG/2 ML VIAL IVP PRN (10:48)
--- NOTE | 2018-04-08 10:51 | Event Note ---
Date of Encounter: 04/08/18 Time of Encounter: 11:00 - Cardiology Event Note Patient with rising troponin and ongoing chest pain despite heparin/NTG drip urgently brought down for emergent LHC. He was found to have occluded diagonal with thrombus and HERMELINDA 0 flow, sp PCI LOYDA restoring HERMELINDA 3 flow. Heparin/NTG drip to be discontinued.
[2018-04-08] MEDS ORDERED: Nitroglycerin 0.4 MG TAB.SUBL SL PRN (10:56)
[2018-04-08] MEDS ORDERED: Tirofiban 12.5 MG/250ML 12.5 MG/250 ML BAG IVC SCH (11:00)
--- NOTE | 2018-04-08 17:46 | Electrocardiograph Report ---
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
--- NOTE | 2018-04-08 17:54 | Electrocardiograph Report ---
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
--- NOTE | 2018-04-08 18:09 | Electrocardiograph Report ---
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
[2018-04-08] MEDS: Metoprolol XL (24 HR) Succ 25 MG TAB.ER.24H PO SCH (20:23)
[2018-04-08] MEDS: *HR* Ticagrelor 90 MG TABLET PO SCH (20:23)
[2018-04-09 05:35] LABS: Basophils % 0.3 %; Eosinophils # 0.2 K/mcL (0.0-0.6); Eosinophils % 1.7 %; Hematocrit 45.7 % (37.5-50.1); Hemoglobin 15.6 g/dL (12.9-16.9); Immature Granulocytes % 0.3 % (0-4); Lymphocytes # 3.6 K/mcL (0.6-4.6); Lymphocytes % 31.7 %; Mean Corpuscular HGB Conc 34.1 g/dL (31.6-35.5); Mean Corpuscular Hemoglobin 30.1 pg (28.0-33.3); Mean Corpuscular Volume 88.2 fL (83.0-100.0); Monocytes % 8.4 %; Neutrophils # 6.6 K/mcL (1.6-8.9); Platelet Count 167 K/mcL (140-400); Red Blood Count 5.18 M/mcL (4.19-5.50); Red Cell Distribution Width 13.3 % (11.5-14.5); Segmented Neutrophils % 57.6 %
[2018-04-09 06:14] LABS: BUN/Creatinine Ratio 11 (6-26); Blood Urea Nitrogen 11 mg/dL (6-20); Calcium 9.4 mg/dL (8.6-10.3); Carbon Dioxide 25 mEq/L (23-29); Chloride 103 mEq/L (98-107); Glucose 115 mg/dL (70-105); Magnesium 2.1 mg/dL (1.6-2.6); Osmolality,Calculated 282 (280-300); Potassium 3.8 mEq/L (3.5-5.1); Sodium 136 mEq/L (136-145); eGFR For African Americans > 60 (> 60); eGFR For Non-African Americans > 60 (> 60)
[2018-04-09 07:24] VITALS: BP 124/88
--- NOTE | 2018-04-09 08:15 | Cardiology Progress Note ---
Date of Encounter: 04/09/18 Time of Encounter: 08:00 Assessment and Plan (1) NSTEMI (non-ST elevated myocardial infarction) Current Visit: Yes Status: Acute Per Cardiology: Troponin elevation up to 34.49. 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 * Left Anterior Descending There is a 30% stenosis in the Proximal LAD. There is a 20 mm long, 100% stenosis in the 1st Diagonal. The lesion has thrombus present. An intervention was performed on the 1st Diagonal with a final stenosis of 0%. There were no lesion complications. The final HERMELINDA flow was 3. * Circumflex There is a 30% stenosis in the Mid Circumflex. * Right Coronary Artery There is a 30% stenosis in the Mid RCA. There is a 30% stenosis in the Right PDA. Currently chest pain-free. Echo results pending. On aspirin, Brilinta, statin , ARB, beta poli, and has SL nitroglycerin pills-- recommend provide at discharge and he was educated on how to utilize and call 911. Education provided regarding importance of dual antiplatelet therapy for at least 1 year. Patient and family verbalized understanding and agreed with plan. Please provide work excuse for this hospital stay and to not return to work until seen by cardiology and follow-up. Cardiology will sign off, reconsult as needed, follow-up arranged. All questions answered. Education provided post IA and cath care. (2) PVC (premature ventricular contraction) Current Visit: Yes Status: Acute Per Cardiology: PVCs appear improved. On beta poli. No runs of ventricular tachycardia. Discussion w patient/family: The assessment and plan as outlined above was discussed with the patient and/or family members who expressed understanding and agreement. All questions were answered. Thank you for involving us in the care of your patient. Please call with any questions. Subjective Principal diagnosis: NSTEMI Interval history: Patient denies any chest pain, shortness of breath, palpitations. Denies any right wrist discomfort. Denies any concerns. Objective Vital Signs, Last 4 Hours Temp Pulse Resp BP Pulse Ox 04/09/18 07:21 98.1 F 63 16 124/88 98 04/09/18 05:19 114/80 04/09/18 05:00 98.6 F 66 16 114/80 97 General: Conversant, No Apparent Distress HEENT: Atraumatic, Normocephaly, Mucus Membranes Moist Cardiac: Reg Rate and Rhythm, Normal S1 and S2, No Murmur Lungs: Normal Breath Sounds, No Wheeze, Rales, Rhonchi Neuro: Alert and responsive, No focal deficits noted Skin: No rashes noted on visualized skin, Other (Right wrist site dry and intact , no hematoma, no ecchymosis, no bleeding, right radial pulse 2+ palpable) Extremities: No Edema Results 04/09/18 05:21 04/09/18 05:21 Lab Results Laboratory Tests 04/08/18 07:42 Troponin I 34.49 H* ITS Impressions Chest X-Ray 04/07/18 18:16 IMPRESSION: Normal appearing chest. No significant acute abnormality appreciated. Slight pulmonary vascular congestion may be present. D/ / Navjot Holland MD / Navjot Holland MD Interpreting Provider: Navjot Holland MD Active Medications Acetaminophen (Tylenol) 650 mg PO Q6HR PRN PRN Reason: Mild Pain/Fever Stop: 10/07/18 21:19 Allopurinol (Zyloprim) 300 mg PO DAILY [facility] Stop: 10/08/18 09:01 Last Admin: 04/08/18 08:44 Dose: 300 mg Aspirin (Aspirin Ec) 81 mg PO DAILY KARIME Stop: 10/08/18 09:01 Last Admin: 04/08/18 08:44 Dose: 81 mg Atorvastatin Calcium (Lipitor) 80 mg PO HS KARIME Stop: 10/08/18 21:01 Last Admin: 04/08/18 20:23 Dose: 80 mg Escitalopram Oxalate (Lexapro) 20 mg PO DAILY KARIME Stop: 10/08/18 09:01 Last Admin: 04/08/18 08:43 Dose: 20 mg Hydralazine HCl (Hydralazine) 10 mg IVP Q6HR PRN PRN Reason: Hypertension Stop: 10/07/18 20:23 Metoprolol Succinate (Toprol Xl) 12.5 mg PO HS [facility] Stop: 10/07/18 21:16 Last Admin: 04/08/18 20:23 Dose: 12.5 mg Naloxone HCl (Narcan) 0.4 mg IVP Q2MIN PRN PRN Reason: SEE COMMENTS Stop: 10/07/18 21:19 Nitroglycerin (Nitroglycerin) 0.4 mg SL Q5MIN PRN PRN Reason: Chest Pain Stop: 10/08/18 10:57 Ondansetron HCl (Zofran) 4 mg IVP Q6HR PRN; Protocol PRN Reason: Nausea And Vomiting Stop: 10/08/18 10:49 Ticagrelor (Brilinta) 90 mg PO BID KARIME Stop: 10/08/18 21:01 Last Admin: 04/08/18 20:23 Dose: 90 mg Valsartan (Diovan) 160 mg PO DAILY KARIME Stop: 10/08/18 09:01 Last Admin: 04/08/18 08:44 Dose: 160 mg - Imaging and Cardiology Echo: pending Cardiac cath: report reviewed - EKG Interpretation EKG results cardiology: other (Telemetry reviewed with average heart rate the past 12 hours 71, occasional PVCs and couplets, no significant events noted) Consult Discharge Plan - Plan Referrals: Chilo Matson MD [Primary Care Provider] - Prescriptions: Atorvastatin [Lipitor] 80 mg PO HS #30 tablet Metoprolol XL (24 HR) Succ [Toprol XL] 12.5 mg PO DAILY #15 tab.er.24h Nitroglycerin [Nitrostat] 0.4 mg SL AD PRN #25 tab.subl PRN Reason: Chest Pain Ticagrelor [Brilinta] 90 mg PO BID #60 tablet
--- NOTE | 2018-04-09 09:40 | Discharge Summary ---
<Laura Gómez - Last Filed: 04/09/18 09:37> Orders not resulted at time of discharge: Pending orders 04/09/18 06:00 ECG 12 lead ECG [ECG] AM 0600 04/10/18 04:00 Basic Metabolic Panel AM 0400 Complete Blood Count [HEME] AM 0400 Magnesium AM 0400 04/11/18 04:00 Basic Metabolic Panel AM 0400 Complete Blood Count [HEME] AM 0400 Magnesium AM 0400 04/12/18 04:00 Basic Metabolic Panel AM 0400 Complete Blood Count [HEME] AM 0400 Magnesium AM 0400 04/13/18 04:00 Basic Metabolic Panel AM 0400 Complete Blood Count [HEME] AM 0400 Magnesium AM 0400 Date of Encounter: 04/09/18 Time of Encounter: 09:37 - Discharge Diagnosis (1) NSTEMI (non-ST elevated myocardial infarction) Priority: Primary Status: Acute (2) PVC (premature ventricular contraction) Priority: Secondary Status: Acute (3) Hypertensive emergency Priority: Secondary Status: Acute (4) Depression Priority: Secondary Status: Chronic Qualifiers: Depression Type: major depressive disorder Major depression recurrence: unspecified whether recurrent Active/Remission status: currently active Major depression episode severity: unspecified Qualified Code(s): F32.9 - Major depressive disorder, single episode, unspecified (5) Gout Priority: Secondary Status: Chronic Qualifiers: Gout site: unspecified site Gout etiology: lead-induced Encounter type: sequela Chronicity: unspecified Qualified Code(s): T56.0X1S - Toxic effect of lead and its compounds, accidental (unintentional), sequela; 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 Stephen is a 47 year old male with past medical history of hypertension, hyperlipidemia, gout and depression who experienced chest pain was admitted for chest pain workup after laying down mulch in his yard. While admitted patient complained of continued chest pain and had an increase in troponin. Patient was emergently brought to the catheterization lab and received a stent in his diagonal. Patient cleared by cardiology. New medications started and sent via pharmacy. Patient chest pain-free at this time. - Time Spent with Patient Total time spent providing and/or coordinating discharge services: - Discharge Medications Prescriptions: Atorvastatin [Lipitor] 80 mg PO HS #30 tablet Metoprolol XL (24 HR) Succ [Toprol XL] 12.5 mg PO DAILY #15 tab.er.24h Nitroglycerin [Nitrostat] 0.4 mg SL AD PRN #25 tab.subl PRN Reason: Chest Pain Ticagrelor [Brilinta] 90 mg PO BID #60 tablet Home Medications: Allopurinol [Zyloprim 300 MG] 300 mg PO DAILY 04/07/18 [History] Escitalopram [Lexapro] 20 mg PO DAILY 04/07/18 [History] Valsartan 160 mg PO DAILY 04/07/18 [History] Atorvastatin [Lipitor] 80 mg PO HS #30 tablet 04/08/18 [Rx] Metoprolol XL (24 HR) Succ [Toprol XL] 12.5 mg PO DAILY #15 tab.er.24h 04/08/18 [Rx] Nitroglycerin [Nitrostat] 0.4 mg SL AD PRN #25 tab.subl 04/08/18 [Rx] Ticagrelor [Brilinta] 90 mg PO BID #60 tablet 04/08/18 [Rx] Allergies/Adverse Reactions: 3 Allergy/AdvReac Type Severity Reaction Status Date / Time No Known Allergies Allergy Verified 04/07/18 19:43 Date of admission: 04/07/18 22:17 Primary care physician: Chilo Matson MD Consults: 04/08/18 10:47 Consult to Cardiac Rehabilitation-Phase1 [CONS] Routine Comment: Reason for Consult: post op PCI Call Completed: Yes Discharging clinician: Laura Gómez Anticipated date of discharge: 04/09/18 - Constitutional Vitals: Temp Pulse Resp BP Pulse Ox 98.1 F 63 16 124/88 98 04/09/18 07:21 04/09/18 07:21 04/09/18 07:21 04/09/18 07:21 04/09/18 07:21 General appearance: Present: A&O X 3, no acute distress - Head Head exam: Present: atraumatic, normocephalic - Respiratory Respiratory exam: Present: CTAB. Absent: accessory muscle use, rales, rhonchi, wheezes - Cardiovascular Cardiovascular exam: Present: RRR, +S1, +S2. Absent: diastolic murmur, gallop, rubs, systolic murmur - GI/Abdominal GI/Abdominal exam: Present: normal bowel sounds, soft, no peritoneal signs. Absent: distended, tenderness - Neurological Exam Neurological exam: Present: alert, oriented X3, no focal deficits - Patient Status Disposition: Home, Self-Care Condition: Good Functional capacity at discharge: independent ambulation - Discharge Instructions Instructions: Metoprolol (By mouth), Nitroglycerin (By mouth), Atorvastatin ( By mouth), Ticagrelor (By mouth), Myocardial Infarction (DC), Depression (DC), Chronic Hypertension (DC) Follow Up With: Chilo Matson MD [Primary Care Provider] - (please call wednesday to get a follow up appointment for 1 week after discharge.) Ross Huntley MD [Partnered Physician] - (Please call Wednesday to make sure they are arranging you a followup appt. Reason for appt: heart stent placement.) Additional Instructions: Please continue your home medications. Please add new medications including Brilinta, lipitor, metoprolol, and nitro. Please stop your viagra. Please follow-up with cardiology as already scheduled with them. Please follow-up with your primary care physician within one week. Please return for any new or worsening symptoms - Diet and Activity Activity: increase activity as tolerated Diet: advance to your usual diet <Brandyn Huff - Last Filed: 04/09/18 15:00> Orders not resulted at time of discharge: Pending orders 04/09/18 06:00 ECG 12 lead ECG [ECG] AM 0600 Date of Encounter: 04/09/18 Hospital course: Mr. Stephen is a 47 year old male - Time Spent with Patient Total time spent providing and/or coordinating discharge services: Date of admission: 04/07/18 22:17 Primary care physician: Chilo Matson MD Consults: 04/08/18 10:47 Consult to Cardiac Rehabilitation-Phase1 [CONS] Routine Comment: Reason for Consult: post op PCI Call Completed: Yes - Constitutional Vitals: Temp Pulse Resp BP Pulse Ox 98.1 F 63 16 124/88 98 04/09/18 07:21 04/09/18 07:21 04/09/18 07:21 04/09/18 07:21 04/09/18 07:21 - Attending Attestation I saw and examined this patient independently, and my medical decision making was reviewed with the Resident on 2017. I agree with the documented findings, assessment and treatment plan as described in the discharge summary.
[2018-04-09] MEDS: Aspirin Enteric Coated 81 MG Tablet PO SCH (10:59)
[2018-04-09] MEDS: Valsartan 160 MG TABLET PO SCH (10:59)
[2018-04-09] MEDS: *HR* Ticagrelor 90 MG TABLET PO SCH (10:59)
== END 2018-04-09 11:26 | disposition home or self-care (01) | DRG 247 ==
LOC: EMEROO 18:11 → 3BNU 18:11 → 2NENU 22:16 → SUATTDRO 22:17 → 2NENU 22:40
PROVIDERS: ADMIT Internal Medicine; ATTEND Hospitalist